=== PATIENT | female | born 1970 | race Caucasian/White ===

== ENCOUNTER 2024-04-06 12:07 | Inpatient (IN) | payer OTHER ==
[~2024-04-06 12:07] MED LIST: Iopamidol-370 76% 500 ML MDV (1 ML CHARGE) ONE
[2024-04-06] MEDS ORDERED: fentaNYL 50 mcg/mL 1 mL Vial ONE (12:43)
[2024-04-06] MEDS ORDERED: Ondansetron PF 4 MG/2 ML Vial ONE (12:57)
[2024-04-06 14:03] LABS: #Basophils 0.05 10x3/uL (0.0-0.2); %Basophils 0.6 % (0.0-1.0); %Eosinophils 0.8 % (0.0-10.0); %Lymphocytes 19.3 % (21.0-51.0); %Monocytes 6.1 % (0.0-10.0); %Neutrophils 72.8 % (42.0-75.0); Hematocrit 39.3 % (36.0-47.0); Hemoglobin 13.3 g/dL (12.0-16.0); Mean Corpuscular HGB CONC 33.8 g/dL (32.0-36.0); Mean Corpuscular Hemoglobin 30.9 pg (27.0-31.0); Mean Corpuscular Volume 91.2 fL (78.0-98.0); Platelet Count 253 10x3/uL (130-400); RBC Distribution Width 13.3 % (11.5-14.5); Red Blood Cell (RBC) Count 4.31 mill/uL (4.20-5.40)
[2024-04-06 15:16] LABS: Globulin 3.3 g/dL (2.4-3.5)
[2024-04-06 15:21] LABS: ALT (SGPT) 18 U/L (8-55); AST (SGOT) 29 U/L (5-34); Albumin 3.9 g/dL (3.5-5.0); Alkaline Phosphatase 78 U/L (40-110); Anion Gap 16 mmol/L (10-20); BUN (Urea Nitrogen) 12 mg/dL (9.8-20.1); Bilirubin, Total 0.5 mg/dL (0.2-1.2); Calc. Creatinine Clearance 0 mL/min (70-130); Calcium 9.8 mg/dL (7.8-10.44); Carbon Dioxide 24 mmol/L (22-29); Chloride 101 mmol/L (98-107); Estimated GFR 78; Glucose 92 mg/dL (70-105); Potassium 3.3 mmol/L (3.5-5.1); Protein, Total 7.2 g/dL (6.0-8.3); Sodium 138 mmol/L (136-145)
[2024-04-06] MEDS ORDERED: traMADol HCl 50 MG TAB PO PRN (17:21)
[2024-04-06] MEDS ORDERED: Acetaminophen 500 MG TAB ONE (17:31)
[2024-04-06] MEDS ORDERED: Senokot S 8.6-50 MG TAB PO SCH (21:00)
[2024-04-06] MEDS: Senokot S 8.6-50 MG TAB PO SCH (21:49)
[2024-04-06] MEDS: Gabapentin 100 MG CAP PO SCH (21:49)
[2024-04-06] MEDS: Famotidine 20 MG TAB PO SCH (21:49)
[2024-04-06] MEDS: Ondansetron PF 4 MG/2 ML Vial IVP PRN (21:50)
[2024-04-06 22:05] VITALS: BMI 28.2
[2024-04-06] MEDS: traMADol HCl 50 MG TAB PO SCH (23:05)
[2024-04-07] MEDS: traMADol HCl 50 MG TAB PO PRN (04:20)
[2024-04-07] MEDS: Cyclobenzaprine 10 MG TAB PO PRN (04:25)
[2024-04-07 05:34] LABS: #Basophils 0.05 10x3/uL (0.0-0.2); %Basophils 0.5 % (0.0-1.0); %Eosinophils 0.4 % (0.0-10.0); %Lymphocytes 20.3 % (21.0-51.0); %Monocytes 9.2 % (0.0-10.0); %Neutrophils 69.3 % (42.0-75.0); Hematocrit 33.4 % (36.0-47.0); Hemoglobin 11.6 g/dL (12.0-16.0); Mean Corpuscular HGB CONC 34.7 g/dL (32.0-36.0); Mean Corpuscular Hemoglobin 30.6 pg (27.0-31.0); Mean Corpuscular Volume 88.1 fL (78.0-98.0); Platelet Count 242 10x3/uL (130-400); RBC Distribution Width 13.5 % (11.5-14.5); Red Blood Cell (RBC) Count 3.79 mill/uL (4.20-5.40)
[2024-04-07 05:50] LABS: PTT 27.1 sec (22.9-36.1); Prothrombin Time 13.6 sec (12.0-14.7)
[2024-04-07 05:51] LABS: Anion Gap 15 mmol/L (10-20); BUN (Urea Nitrogen) 10 mg/dL (9.8-20.1); Calc. Creatinine Clearance 106 mL/min (70-130); Calcium 9.1 mg/dL (7.8-10.44); Carbon Dioxide 24 mmol/L (22-29); Chloride 106 mmol/L (98-107); Estimated GFR 84; Glucose 98 mg/dL (70-105); Potassium 3.6 mmol/L (3.5-5.1); Sodium 141 mmol/L (136-145)
[2024-04-07] MEDS ORDERED: Metamucil PACK PER TUBE SCH (09:00)
[2024-04-07] MEDS: Morphine 2 MG/ML VIAL SLOW IVP PRN (09:32)
[2024-04-07] MEDS: Potassium Chloride 20 MEQ TAB PO SCH (09:33)
[2024-04-07] MEDS: Potassium Chloride 20 MEQ in Lactated Ringer's 1,000 ML IV SCH (11:06)
[2024-04-07] MEDS: Acetaminophen 500 MG TAB PO SCH (18:04)
[2024-04-07] MEDS: Enoxaparin 40 MG (0.4 mL) SYRINGE SC SCH (20:23)
[2024-04-07] MEDS: Losartan 25 MG TAB PO SCH (20:24)
[2024-04-08 05:02] LABS: #Basophils 0.06 10x3/uL (0.0-0.2); %Basophils 0.7 % (0.0-1.0); %Eosinophils 4.7 % (0.0-10.0); %Lymphocytes 31.6 % (21.0-51.0); %Monocytes 8.8 % (0.0-10.0); %Neutrophils 53.8 % (42.0-75.0); Hematocrit 31.7 % (36.0-47.0); Hemoglobin 10.8 g/dL (12.0-16.0); Mean Corpuscular HGB CONC 34.1 g/dL (32.0-36.0); Mean Corpuscular Hemoglobin 31.1 pg (27.0-31.0); Mean Corpuscular Volume 91.4 fL (78.0-98.0); Mean Platelet Volume 10.9 fL (7.4-10.4); Platelet Count 207 10x3/uL (130-400); RBC Distribution Width 13.8 % (11.5-14.5); Red Blood Cell (RBC) Count 3.47 mill/uL (4.20-5.40)
[2024-04-08 05:26] LABS: Anion Gap 12 mmol/L (10-20); BUN (Urea Nitrogen) 15 mg/dL (9.8-20.1); Calc. Creatinine Clearance 103 mL/min (70-130); Calcium 8.7 mg/dL (7.8-10.44); Carbon Dioxide 25 mmol/L (22-29); Chloride 108 mmol/L (98-107); Estimated GFR 82; Glucose 96 mg/dL (70-105); Potassium 3.7 mmol/L (3.5-5.1); Sodium 141 mmol/L (136-145)
[2024-04-09] MEDS: Melatonin 3 MG TAB PO SCH (20:47)
[2024-04-11] MEDS: Ibuprofen 600 MG TAB PO PRN (09:53)
[2024-04-12 15:40] VITALS: BP 121/78; TEMP 98
== END 2024-04-12 18:14 | DRG 563 ==
LOC: ERS 12:07 → SURG A 15:41
PROVIDERS: ADMIT Surgery; ATTEND Surgery
DX: S82.61XA Displaced fracture of lateral malleolus of right fibula, initial encounter for closed fracture (principal); S82.831A Other fracture of upper and lower end of right fibula, initial encounter for closed fracture; I10 Essential (primary) hypertension; W19.XXXA Unspecified fall, initial encounter; S83.206A Unspecified tear of unspecified meniscus, current injury, right knee, initial encounter; Z86.73 Personal history of transient ischemic attack (TIA), and cerebral infarction without residual deficits; Z79.899 Other long term (current) drug therapy
CPT/HCPCS: 36415; 70450; 80048; 80053; 85025; 85610; 85730; 86850; 86900; 86901; G0390; J1650; J2272; J2405; J3010; J3480; J7120; Q9967